=== PATIENT | female | born 1965 | race Caucasian/White ===

== ENCOUNTER 2021-03-17 06:02 | Emergency (ER) | payer BC ==
[~2021-03-17] VITALS: Ht 162.6 cm; Wt 100.0 kg
[~2021-03-17 06:02] MED LIST: CLON-528 PO
[2021-03-17 06:44] VITALS: BP 159/86
[2021-03-17] MEDS ORDERED: LIDOcaine 1% W/epiNEPHrine 1:100,000 20ml vial SQ ONE (06:55)
[2021-03-17] MEDS ORDERED: tetanus & diphtheria toxoid (Td) vaccine 0.5ml IMVAC ONE (06:55)
[2021-03-17] MEDS ORDERED: HYDROcodone/acetaminophen 10/325mg tab PO ONE (07:10)
[2021-03-17] MEDS ORDERED: TETanus/Pertussis (Acell)/Diphther VAC/PF (Tdap-Adult) 0.5ml syringe IMVAC ONE (07:15)
== END 2021-03-17 07:51 | disposition home or self-care (01) ==
LOC: ER 06:02
DX: S81.811A Laceration without foreign body, right lower leg, initial encounter (principal); W26.8XXA Contact with other sharp object(s), not elsewhere classified, initial encounter; Y93.89 Activity, other specified; Y92.89 Other specified places as the place of occurrence of the external cause; Y99.8 Other external cause status
CPT/HCPCS: 12004; 90471; 90715; 99283